=== PATIENT | female | born 1990 | race Caucasian/White ===

== ENCOUNTER 2016-12-18 20:58 | Emergency (ER) | payer OTHER ==
--- NOTE | 2016-12-18 23:05 | ED CLINICAL REPORT ---
Clinical Report - Physicians/Mid Levels [facility] [address] [place] [address] 12/18/2016 21:00 Patient: PIA CARTER Time Seen: 21:12. Arrived- By private vehicle. Historian- patient and family. HISTORY OF PRESENT ILLNESS Chief Complaint: INJURY TO RIGHT UPPER EXTREMITY (WRIST and HAND). The injury occurred 2 days ago and today. Occurred at work. ( Pia fell at work 2 days ago. 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 Today she was lifting a 24 can case of soda and felt a pop in her right wrist. Her wrist had continued to hurt after the first injury 2 days ago. 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 During that time she has developed pain in both wrists which she believes to be carpal tunnel syndrome.). Fell. The patient complains of moderate pain. No blow to the head, neck pain or loss of consciousness. Not dazed. REVIEW OF SYSTEMS No numbness, loss of vision, hearing loss, chest pain or difficulty breathing. No weakness, nausea, abdominal pain, laceration or vomiting. She has no pain on weight bearing. PAST HISTORY PCP: PROBLEMS: Carpal Tunnel Syndrome. Thyroid Disease. Dental Pain. Hypertension. Dental Caries. SOCIAL HISTORY Current every day smoker. ADDITIONAL NOTES The nursing notes have been reviewed. PHYSICAL EXAM Vital Signs: 12/18/2016 21:07 BP: 171/128. HR: 94. RR: 20. O2 saturation: 100%. Temp: 98.1 F. Pain level now: 04/17. Appearance: Alert. No acute distress. Head: Head non-tender. Neck: Painless ROM. Non-tender. Non-tender. Respiratory: Chest nontender. Abdomen: Soft and nontender. Back: No tenderness. ROM normal. Extremities: Right shoulder. (mild tenderness with complete normal range of motion). No limitation in ROM. Right wrist: mild tenderness located in the area of the anatomic snuffbox and dorsal aspect of the wrist. Neurovascular intact distally. No erythema or swelling. No joint effusion or limitation in ROM. Right hand: tenderness. (Tender over the mid fifth metacarpal). No swelling or deformity. (Otherwise normal to palpation). LABS, X-RAYS, AND EKG Rt Wrist X-ray: (Navicular and 5th metatarsal tender but x-ray neg. /RR). The X-rays were independently viewed by me. PROGRESS AND PROCEDURES Splint Application: Fiberglass thumb spica splint applied to right upper extremity. Splint applied by tech with direct supervision by me. Reassessed extremity following splint application. Neurovascular intact. Follow-up recommended within 8 days. Course of Care: 22:41 12/18/16. Meds, ICG L&I form completed. Splinting is somewhat complicated by the patient's wedding tomorrow. She is warned about navicular fracture and car groomer wrist disability. She is given a thumb spika which can be removed for the wedding ceremony. Disposition: Discharged. Condition: stable. CLINICAL IMPRESSION Possible navicular fracture of the right wrist. RIGHT WRIST PAIN HYPERTENSION GROUND LEVEL FALL. INSTRUCTIONS Return to work (Ms Lombardi may have a navicular bone fracture in her wrist. You may use your left arm and wrist normally and may lift up to 15 pounds with that. For up to the next 6 weeks he will need to severely limited any use with the right hand or wrist.). (You may have a navicular bone fracture in her wrist. You may use your left arm and wrist normally and may lift up to 15 pounds with that. For up to the next 6 weeks he will need to severely limited any use with the right hand or wrist. YOU ALSO NEED YOUR BLOOD PRESSURE CHECKED AND MANAGED.). Prescription Medications: Hydrocodone/APAP 5mg / 325mg: take 1-2 orally every 4 hours. Dispense twelve (12). No refill. HCTZ 25 mg: take 1 orally every 24 hours. Dispense thirty (30). No refills. Follow-up: Follow up with doctor in eight days. Understanding of the discharge instructions verbalized by patient. [facility] with: [facility], , [address] [place], [id number] Follow up. Reason for referral: YOU NEED A RE EVALUATION OF A POSSIBLE NAVICULAR FRACTUR AND POSSIBLE CARPAL TUNNEL. (Electronically signed by Daniele Hawkins MD 12/19/2016 21:45)
--- NOTE | 2016-12-18 23:05 | ED NURSING NOTES ---
Clinical Report - Nurses [facility] [place] [address] 12/18/2016 21:00 Patient: ANALIA CARTER TRIAGE Triage time 21:08 Dec 18 2016. Acuity: LEVEL 3. Chief Complaint: INJURY TO RIGHT WRIST. 21:12 12/18/16. SEPSIS SCREEN: Sepsis Screen: negative. Negative (no infection suspected/documented). PATY COMA SCORE: Paty Coma Scale: 15- eyes open spontaneously (4); best verbal response- oriented x 4 (5); best motor response- obeys commands (6). --21:12 Kelly Morales 21:07 12/18/16. BP: 171/128. HR: 94. RR: 20. O2 saturation: 100% on room air. Temp: 98.1 F (oral). Pain level now: 04/17. --21:12 Kelly Morales. Weight: 136 kg stated. Height/Length: 71 inches Per Patient. BMI: 41.8. --21:11 Kelly Morales. Medications None. --21:09 Kelly Morales. Medication/allergy information source: the patient. --21:12 Kelly Morales. Allergies No Known Drug Allergy. --21:09 Kelly Morales. History Arrived by private vehicle. Historian: patient. Unaccompanied. Primary physician (None). This occurred yesterday. Occurred at work. Mechanism of injury: fell while walking and landed on a hard surface; slipped. ( Patient reports she fell at work two days ago and landed on her right wrist. She states today she grabbed something and felt a pop and pain. She reports some swelling in the right wrist.). PAST MEDICAL HX: Tetanus status: up-to-date. Immunizations: up-to-date. Last normal menstrual period- 1 months ago. SOCIAL HX: Smoker- current status unknown (cigarette). History of drug use: marijuana. No alcohol use. No infectious disease exposure. ABUSE ASSESSMENT: No report of abuse. FALL RISK ASSESSMENT: Fall risk assessment completed. No fall risk identified. NUTRITIONAL RISK ASSESSMENT: The nutritional risk assessment revealed no deficiencies. FUNCTIONAL ASSESSMENT: Functional assessment: no impairments noted. LEARNING NEEDS ASSESSMENT: The learning needs assessment revealed no barriers. SKIN INTEGRITY ASSESSMENT: Skin integrity risk assessment completed. No skin integrity risk identified. --21:12 Kelly Morales. PROBLEMS: Carpal Tunnel Syndrome. Thyroid Disease. Dental Pain. Hypertension. Dental Caries. Immunizations. LNMP - Last Normal Menstrual Period. --21:09 Kelly Morales. ADDITIONAL SURGERIES: no known surgeries. Interventions ID band on patient. To treatment room. --21:12 Kelly Morales. PHYSICAL ASSESSMENT 21:12 12/18/16. Ambulatory to room. GENERAL / NEURO / PSYCH: Oriented X 4. Alert. Appears in no acute distress. EXTREMITIES: Capillary refill is less than 2 seconds in the extremities. Extremity pulses are within normal limits. Neuro-vascular status intact to the extremity. Right wrist: tenderness located in the radial aspect of the wrist. Limited ROM secondary to pain. SKIN: Skin is warm and dry. --21:12 Kelly Morales. NURSING PROGRESS NOTES Cold pack applied. Warming measures: blanket applied. Reassurance given to the patient. Two patient identifiers checked. Call light placed in reach. Side rails up x 1. Bed placed in lowest position. Brakes of bed on. Patient ready for evaluation- chart flagged. --21:13 Kelly Morales 21:32 12/18/2016 Ibuprofen PO Capsules 600 mg given. Allergies verified and confirmed 5 rights. --21:32 Kelly Morales 21:35 Portable X-ray in progress. --21:35 Lisa Grewal, ER Tech1 22:10. Thumb spica fiberglass upper extremity splint applied to right wrist by tech. --22:16 Lisa Grewal, ER Tech1. DISPOSITION / DISCHARGE 22:49 12/18/16. Condition at departure: stable. The goals identified in the patient's plan of care were met. ( Provider made aware of patient vitals, provider reassessed and added medications to patient discharge). No learning barriers present. Discharge instructions provided and reviewed with the patient. Reviewed warnings (Do not drive while on sedative medications). Reviewed medication(s) side effects, precautions, dosing and course information. Prescription(s) given to the patient. Reviewed splint care instructions. Patient verbalized understanding. Written instructions provided in Sami. ( Please see your PCP in three days to evaluate your blood pressure. Ice and elevate affected extremity. Limit use of the affected extremity. Referral given to Ortho. Patient expressed understanding of discharge instruction and had no questions at this time.). The patient was discharged by the physician. She was discharged home and accompanied by rod bending machine operator. She left the Emergency Department ambulatory and via private vehicle. Tongue Carrier driving. FALL RISK ASSESSMENT: Fall risk assessment completed. No fall risk identified. --00:50 Kelly Morales 22:46 12/18/16. BP: 189/125. HR: 102. RR: 20. O2 saturation: 98% on room air. Temp: deferred. Pain level now: 04/17. --00:50 Kelly Morales. Locked/Released at 12/19/2016 0:50 by Kelly Morales,
--- NOTE | 2016-12-18 23:05 | ED CLINICAL REPORT ---
Clinical Report - Physicians/Mid Levels [facility] [address] [place] [address] 12/18/2016 21:00 Patient: PIA CARTER Time Seen: 21:12. Arrived- By private vehicle. Historian- patient and family. HISTORY OF PRESENT ILLNESS Chief Complaint: INJURY TO RIGHT UPPER EXTREMITY (WRIST and HAND). The injury occurred 2 days ago and today. Occurred at work. ( Pia fell at work 2 days ago. 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 Today she was lifting a 24 can case of soda and felt a pop in her right wrist. Her wrist had continued to hurt after the first injury 2 days ago. 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 During that time she has developed pain in both wrists which she believes to be carpal tunnel syndrome.). Fell. The patient complains of moderate pain. No blow to the head, neck pain or loss of consciousness. Not dazed. REVIEW OF SYSTEMS No numbness, loss of vision, hearing loss, chest pain or difficulty breathing. No weakness, nausea, abdominal pain, laceration or vomiting. She has no pain on weight bearing. PAST HISTORY PCP: PROBLEMS: Carpal Tunnel Syndrome. Thyroid Disease. Dental Pain. Hypertension. Dental Caries. SOCIAL HISTORY Current every day smoker. ADDITIONAL NOTES The nursing notes have been reviewed. PHYSICAL EXAM Vital Signs: 12/18/2016 21:07 BP: 171/128. HR: 94. RR: 20. O2 saturation: 100%. Temp: 98.1 F. Pain level now: 04/17. Appearance: Alert. No acute distress. Head: Head non-tender. Neck: Painless ROM. Non-tender. Non-tender. Respiratory: Chest nontender. Abdomen: Soft and nontender. Back: No tenderness. ROM normal. Extremities: Right shoulder. (mild tenderness with complete normal range of motion). No limitation in ROM. Right wrist: mild tenderness located in the area of the anatomic snuffbox and dorsal aspect of the wrist. Neurovascular intact distally. No erythema or swelling. No joint effusion or limitation in ROM. Right hand: tenderness. (Tender over the mid fifth metacarpal). No swelling or deformity. (Otherwise normal to palpation). LABS, X-RAYS, AND EKG Rt Wrist X-ray: (Navicular and 5th metatarsal tender but x-ray neg. /RR). The X-rays were independently viewed by me. PROGRESS AND PROCEDURES Splint Application: Fiberglass thumb spica splint applied to right upper extremity. Splint applied by tech with direct supervision by me. Reassessed extremity following splint application. Neurovascular intact. Follow-up recommended within 8 days. Course of Care: 22:41 12/18/16. Meds, ICG L&I form completed. Splinting is somewhat complicated by the patient's wedding tomorrow. She is warned about navicular fracture and long term care phlebotomist wrist disability. She is given a thumb spika which can be removed for the wedding ceremony. Disposition: Discharged. Condition: stable. CLINICAL IMPRESSION Possible navicular fracture of the right wrist. RIGHT WRIST PAIN HYPERTENSION GROUND LEVEL FALL. INSTRUCTIONS Return to work (Ms Lombardi may have a navicular bone fracture in her wrist. You may use your left arm and wrist normally and may lift up to 15 pounds with that. For up to the next 6 weeks he will need to severely limited any use with the right hand or wrist.). (You may have a navicular bone fracture in her wrist. You may use your left arm and wrist normally and may lift up to 15 pounds with that. For up to the next 6 weeks he will need to severely limited any use with the right hand or wrist. YOU ALSO NEED YOUR BLOOD PRESSURE CHECKED AND MANAGED.). Prescription Medications: Hydrocodone/APAP 5mg / 325mg: take 1-2 orally every 4 hours. Dispense twelve (12). No refill. HCTZ 25 mg: take 1 orally every 24 hours. Dispense thirty (30). No refills. Follow-up: Follow up with doctor in eight days. Understanding of the discharge instructions verbalized by patient. [facility] with: [facility], , [address] [place], [id number] Follow up. Reason for referral: YOU NEED A RE EVALUATION OF A POSSIBLE NAVICULAR FRACTUR AND POSSIBLE CARPAL TUNNEL. (Electronically signed by Daniele Hawkins MD 12/19/2016 21:45)
--- NOTE | 2016-12-18 23:05 | ED ORDER SUMMARY ---
..... Patient: ANALIA CARTER OrderSheet [facility] VisitID: [id number] [place] [address] 25y, F Registration Date/Time: 12/18/2016 ORDER SHEET Weight: 136.0 kg (stated) Allergies: No Known Drug Allergy GENERAL ORDERS: Wrist 2V Right Urgent (21:24 12/18/2016 Rubén UREÑA) (Cancelled: Other21:28 Rubén UREÑA) Wrist 3 or 4V Right Urgent (21:28 12/18/2016 Rubén UREÑA) (Ack 21:38 SRedmond) (Cancelled: Other22:00 HSoule) Hand 3 or 4V Right (R 5th MC tender) Urgent (21:29 12/18/2016 Rubén UREÑA) (Ack 21:38 SRedmond) (21:42 RFay) Splint (UE) (Right) (Thumb Spica) (21:55 12/18/2016 Rubén UREÑA) (Ack 22:00 HSoule) (22:16 AMcQuoid ER Tech1) MEDICATION ORDERS: Ibuprofen PO 600 mg (NOW) (21:26 12/18/2016 Rubén UREÑA) (Ack 21:28 HSoule) (21:32 HSoule) IV FLUIDS: ORDER SHEET NOTES: [Electronically signed by Kelly Morales (00:50 12/19/2016)] [Electronically signed by Daniele Hawkins MD (21:45 12/19/2016)] [Electronically locked/signed by Kelly Morales (00:50 12/19/2016)]
--- NOTE | 2016-12-18 23:05 | ED NURSING NOTES ---
Clinical Report - Nurses [facility] [place] [address] 12/18/2016 21:00 Patient: ANALIA CARTER TRIAGE Triage time 21:08 Dec 18 2016. Acuity: LEVEL 3. Chief Complaint: INJURY TO RIGHT WRIST. 21:12 12/18/16. SEPSIS SCREEN: Sepsis Screen: negative. Negative (no infection suspected/documented). PATY COMA SCORE: Paty Coma Scale: 15- eyes open spontaneously (4); best verbal response- oriented x 4 (5); best motor response- obeys commands (6). --21:12 Kelly Morales 21:07 12/18/16. BP: 171/128. HR: 94. RR: 20. O2 saturation: 100% on room air. Temp: 98.1 F (oral). Pain level now: 04/17. --21:12 Kelly Morales. Weight: 136 kg stated. Height/Length: 71 inches Per Patient. BMI: 41.8. --21:11 Kelly Morales. Medications None. --21:09 Kelly Morales. Medication/allergy information source: the patient. --21:12 Kelly Morales. Allergies No Known Drug Allergy. --21:09 Kelly Morales. History Arrived by private vehicle. Historian: patient. Unaccompanied. Primary physician (None). This occurred yesterday. Occurred at work. Mechanism of injury: fell while walking and landed on a hard surface; slipped. ( Patient reports she fell at work two days ago and landed on her right wrist. She states today she grabbed something and felt a pop and pain. She reports some swelling in the right wrist.). PAST MEDICAL HX: Tetanus status: up-to-date. Immunizations: up-to-date. Last normal menstrual period- 1 months ago. SOCIAL HX: Smoker- current status unknown (cigarette). History of drug use: marijuana. No alcohol use. No infectious disease exposure. ABUSE ASSESSMENT: No report of abuse. FALL RISK ASSESSMENT: Fall risk assessment completed. No fall risk identified. NUTRITIONAL RISK ASSESSMENT: The nutritional risk assessment revealed no deficiencies. FUNCTIONAL ASSESSMENT: Functional assessment: no impairments noted. LEARNING NEEDS ASSESSMENT: The learning needs assessment revealed no barriers. SKIN INTEGRITY ASSESSMENT: Skin integrity risk assessment completed. No skin integrity risk identified. --21:12 Kelly Morales. PROBLEMS: Carpal Tunnel Syndrome. Thyroid Disease. Dental Pain. Hypertension. Dental Caries. Immunizations. LNMP - Last Normal Menstrual Period. --21:09 Kelly Morales. ADDITIONAL SURGERIES: no known surgeries. Interventions ID band on patient. To treatment room. --21:12 eKlly Morales. PHYSICAL ASSESSMENT 21:12 12/18/16. Ambulatory to room. GENERAL / NEURO / PSYCH: Oriented X 4. Alert. Appears in no acute distress. EXTREMITIES: Capillary refill is less than 2 seconds in the extremities. Extremity pulses are within normal limits. Neuro-vascular status intact to the extremity. Right wrist: tenderness located in the radial aspect of the wrist. Limited ROM secondary to pain. SKIN: Skin is warm and dry. --21:12 Kelly Morales. NURSING PROGRESS NOTES Cold pack applied. Warming measures: blanket applied. Reassurance given to the patient. Two patient identifiers checked. Call light placed in reach. Side rails up x 1. Bed placed in lowest position. Brakes of bed on. Patient ready for evaluation- chart flagged. --21:13 Kelly Morales 21:32 12/18/2016 Ibuprofen PO Capsules 600 mg given. Allergies verified and confirmed 5 rights. --21:32 Kelly Morales 21:35 Portable X-ray in progress. --21:35 Lisa Grewal, ER Tech1 22:10. Thumb spica fiberglass upper extremity splint applied to right wrist by tech. --22:16 Lisa Grewal, ER Tech1. DISPOSITION / DISCHARGE 22:49 12/18/16. Condition at departure: stable. The goals identified in the patient's plan of care were met. ( Provider made aware of patient vitals, provider reassessed and added medications to patient discharge). No learning barriers present. Discharge instructions provided and reviewed with the patient. Reviewed warnings (Do not drive while on sedative medications). Reviewed medication(s) side effects, precautions, dosing and course information. Prescription(s) given to the patient. Reviewed splint care instructions. Patient verbalized understanding. Written instructions provided in Turkish. ( Please see your PCP in three days to evaluate your blood pressure. Ice and elevate affected extremity. Limit use of the affected extremity. Referral given to Ortho. Patient expressed understanding of discharge instruction and had no questions at this time.). The patient was discharged by the physician. She was discharged home and accompanied by general ledger accountant. She left the Emergency Department ambulatory and via private vehicle. Accountant Systems driving. FALL RISK ASSESSMENT: Fall risk assessment completed. No fall risk identified. --00:50 Kelly Morales 22:46 12/18/16. BP: 189/125. HR: 102. RR: 20. O2 saturation: 98% on room air. Temp: deferred. Pain level now: 04/17. --00:50 Kelly Morales. Locked/Released at 12/19/2016 0:50 by Kelly Morales,
--- NOTE | 2016-12-18 23:05 | ED ORDER SUMMARY ---
..... Patient: ANALIA CARTER OrderSheet [facility] VisitID: [id number] [place] [address] 25y, F Registration Date/Time: 12/18/2016 ORDER SHEET Weight: 136.0 kg (stated) Allergies: No Known Drug Allergy GENERAL ORDERS: Wrist 2V Right Urgent (21:24 12/18/2016 Rubén UREÑA) (Cancelled: Other21:28 Rubén UREÑA) Wrist 3 or 4V Right Urgent (21:28 12/18/2016 Rubén UREÑA) (Ack 21:38 SRedmond) (Cancelled: Other22:00 HSoule) Hand 3 or 4V Right (R 5th MC tender) Urgent (21:29 12/18/2016 Rubén UREÑA) (Ack 21:38 SRedmond) (21:42 RFay) Splint (UE) (Right) (Thumb Spica) (21:55 12/18/2016 Rubén UREÑA) (Ack 22:00 HSoule) (22:16 AMcQuoid ER Tech1) MEDICATION ORDERS: Ibuprofen PO 600 mg (NOW) (21:26 12/18/2016 Rubén UREÑA) (Ack 21:28 HSoule) (21:32 HSoule) IV FLUIDS: ORDER SHEET NOTES: [Electronically signed by Kelly Morales (00:50 12/19/2016)] [Electronically signed by Daniele Hawkins MD (21:45 12/19/2016)] [Electronically locked/signed by Kelly Morales (00:50 12/19/2016)]
--- NOTE | 2016-12-18 23:18 | DIAGNOSTIC IMAGING REPORT ---
PROCEDURE: XR HAND 3 OR 4 VIEWS - RIGHT INDICATION: TRAUMA/INJURY TECHNIQUE: Five views of the right hand. COMPARISON: None. FINDINGS: Normal mineralization. No fractures. Normal osseous alignment. No suspicious soft-tissue calcification or radiodense foreign bodies. IMPRESSION: 1. Intact right hand.
--- NOTE | 2016-12-19 21:45 | ED MAR SUMMARY ---
..... Medication Administration Record [facility] [address] [place] [address] Patient: ANALIA CARTER Visit ID: [id number] 25y, F Weight: 136.0 kg Height/Length: 71 in BMI: 41.8 ALLERGIES: No Known Drug Allergy Given 21:32 12/18/2016 Kelly Morales, Medication Administered: IBUPROFEN [PO], Dose: 600 mg Capsules PO. Medication Ordered: Ibuprofen PO 600 mg (NOW).
--- NOTE | 2016-12-19 21:45 | ED MED RECONCILIATION SUMMARY ---
Patient: ANALIA CARTER Medication Reconciliation Report [facility] VisitID: [id number] [place] [address] 25y, F Registration Date/Time: 12/18/2016 Weight: 136.0 kg Height/Length: 71 in. BMI: 41.8 ALLERGIES: No Known Drug Allergy The patient's Home Medications are listed below: NONE. The source(s) of the original Home Medication information: patient The following Medications were given to the patient in the Emergency Department: Ibuprofen [PO] PO 600 mg, administered: 12/18/2016 9:32:00 PM The following Medications were prescribed to the patient: Hydrocodone/APAP 5mg / 325mg: take 1-2 orally every 4 hours. Dispense twelve (12). No refill. -- Daniele Hawkins MD HCTZ 25 mg: take 1 orally every 24 hours. Dispense thirty (30). No refills. -- Daniele Hawkins MD
--- NOTE | 2016-12-19 21:45 | ED MAR SUMMARY ---
..... Medication Administration Record [address] [place] [address] Patient: ANALIA CARTER Visit ID: [id number] 25y, F Weight: 136.0 kg Height/Length: 71 in BMI: 41.8 ALLERGIES: No Known Drug Allergy Given 21:32 12/18/2016 Klely Morales, Medication Administered: IBUPROFEN [PO], Dose: 600 mg Capsules PO. Medication Ordered: Ibuprofen PO 600 mg (NOW).
--- NOTE | 2016-12-19 21:45 | ED DISCHARGE INSTRUCTIONS ---
Patient: ANALIA CARTER General Instructions [facility] VisitID: [id number] [address] [place] [place] [address] 25y, F Registration Date/Time: 12/18/2016 RIGHT WRIST PAIN HYPERTENSION GROUND LEVEL FALL. INSTRUCTIONS Return to work (Ms Lombardi may have a navicular bone fracture in her wrist. You may use your left arm and wrist normally and may lift up to 15 pounds with that. For up to the next 6 weeks he will need to severely limited any use with the right hand or wrist.). (You may have a navicular bone fracture in her wrist. You may use your left arm and wrist normally and may lift up to 15 pounds with that. For up to the next 6 weeks he will need to severely limited any use with the right hand or wrist. YOU ALSO NEED YOUR BLOOD PRESSURE CHECKED AND MANAGED.). Prescription Medications: Hydrocodone/APAP 5mg / 325mg: take 1-2 orally every 4 hours. Dispense twelve (12). No refill. HCTZ 25 mg: take 1 orally every 24 hours. Dispense thirty (30). No refills. Follow-up: Follow up with doctor in eight days. Understanding of the discharge instructions verbalized by patient. Follow-up with: [facility], , [address], [place], [id number] Follow up. Reason for referral: YOU NEED A RE EVALUATION OF A POSSIBLE NAVICULAR FRACTUR AND POSSIBLE CARPAL TUNNEL. ADDITIONAL INFORMATION Navicular Fracture (Wrist), Suspected You are very tender over the navicular bone of the wrist (also called the "scaphoid bone"). This could be a sign of a hairline fracture (break) even though no fracture was seen on the X-ray. Therefore, a splint or cast will be applied until repeat X-rays are taken in about 1-2 weeks. If a hairline fracture is present, it will be visible on the second X-ray and you will have to continue wearing a cast for about 12 weeks. If no fracture is seen on the second X-ray, this means you only have a wrist sprain and the splint/cast can be removed. Home Care: 1) Keep your arm elevated to reduce pain and swelling. When sitting or lying down elevate your arm above the level of your heart. You can do this by placing your arm on a pillow that rests on your chest or on a pillow at your side. This is most important during the first 48 hours after injury. 2) Apply an ice pack (ice cubes in a plastic bag, wrapped in a towel) over the injured area for 20 minutes every 1-2 hours the first day. You can place the ice pack inside the sling and directly over the splint/cast. Continue with ice packs 3-4 times a day for the next two days, then as needed for the relief of pain and swelling. 3) Keep the cast/splint completely dry at all times. Bathe with your cast/splint out of the water, protected with a large plastic bag, rubber-banded at the top end. If a fiberglass cast/splint gets wet, you can dry it with a hair-dryer. 4) You may use acetaminophen (Tylenol) or ibuprofen (Motrin, Advil) to control pain, unless another pain medicine was prescribed. [ NOTE : If you have chronic liver or kidney disease or ever had a stomach ulcer or GI bleeding, talk with your doctor before using these medicines.] 5) If you smoke, try to quit. Tobacco use can interfere with the healing of this fracture and increase risk of a complication needing surgery. Follow Up with your doctor in one week, or as advised by our staff, to be sure the bone is healing properly. [NOTE: Any X-rays taken will be reviewed by a radiologist. You will be notified of any new findings that may affect your care.] Get Prompt Medical Attention if any of the following occur: -- The plaster cast or splint becomes wet or soft -- The fiberglass cast or splint remains wet for more than 24 hours -- Increased tightness or pain under the cast or splint -- Fingers become swollen, cold, blue, numb or tingly Hydrocodone Bitartrate, Acetaminophen Oral tablet What is this medicine? ACETAMINOPHEN; HYDROCODONE (a set a DAMIÁN qing fen; alyson droe KOE done) is a pain reliever. It is used to treat mild to moderate pain. How should I use this medicine? Take this medicine by mouth. Swallow it with a full glass of water. Follow the directions on the prescription label. If the medicine upsets your stomach, take the medicine with food or milk. Do not take more than you are told to take. Talk to your dance coach regarding the use of this medicine in children. This medicine is not approved for use in children. What side effects may I notice from receiving this medicine? Side effects that you should report to your doctor or health urgent care as soon as possible: allergic reactions like skin rash, itching or hives, swelling of the face, lips, or tongue breathing problems confusion feeling faint or lightheaded, falls stomach pain yellowing of the eyes or skin Side effects that usually do not require medical attention (report to your doctor or health urgent care if they continue or are bothersome): nausea, vomiting stomach upset What may interact with this medicine? alcohol antihistamines isoniazid medicines for depression, anxiety, or psychotic disturbances medicines for sleep muscle relaxants naltrexone narcotic medicines (opiates) for pain phenobarbital ritonavir tramadol What if I miss a dose? If you miss a dose, take it as soon as you can. If it is almost time for your next dose, take only that dose. Do not take double or extra doses. Where should I keep my medicine? Keep out of the reach of children. This medicine can be abused. Keep your medicine in a safe place to protect it from theft. Do not share this medicine with anyone. Selling or giving away this medicine is dangerous and against the law. Store at room temperature between 15 and 30 degrees C (59 and 86 degrees F). Protect from light. Keep container tightly closed. Throw away any unused medicine after the expiration date. Discard unused medicine and used packaging carefully. Pets and children can be harmed if they find used or lost packages. What should I tell my health care provider before I take this medicine? They need to know if you have any of these conditions: brain tumor Crohn's disease, inflammatory bowel disease, or ulcerative colitis drink more than 3 alcohol-containing drinks per day drug abuse or addiction head injury heart or circulation problems kidney disease or problems going to the bathroom liver disease lung disease, asthma, or breathing problems an unusual or allergic reaction to acetaminophen, hydrocodone, other opioid analgesics, other medicines, foods, dyes, or preservatives or trying to get breast-feeding What should I watch for while using this medicine? Tell your doctor or health urgent care if your pain does not go away, if it gets worse, or if you have new or a different type of pain. You may develop tolerance to the medicine. Tolerance means that you will need a higher dose of the medicine for pain relief. Tolerance is normal and is expected if you take the medicine for a long time. Do not suddenly stop taking your medicine because you may develop a severe reaction. Your body becomes used to the medicine. This does NOT mean you are addicted. Addiction is a behavior related to getting and using a drug for a non-medical reason. If you have pain, you have a medical reason to take pain medicine. Your doctor will tell you how much medicine to take. If your doctor wants you to stop the medicine, the dose will be slowly lowered over time to avoid any side effects. You may get drowsy or dizzy when you first start taking the medicine or change doses. Do not drive, use machinery, or do anything that may be dangerous until you know how the medicine affects you. Stand or sit up slowly. There are different types of narcotic medicines (opiates) for pain. If you take more than one type at the same time, you may have more side effects. Give your health care provider a list of all medicines you use. Your doctor will tell you how much medicine to take. Do not take more medicine than directed. Call emergency for help if you have problems breathing. The medicine will cause constipation. Try to have a bowel movement at least every 2 to 3 days. If you do not have a bowel movement for 3 days, call your doctor or health urgent care. Too much acetaminophen can be very dangerous. Do not take Tylenol (acetaminophen) or medicines that contain acetaminophen with this medicine. Many non-prescription medicines contain acetaminophen. Always read the labels carefully. Hydrochlorothiazide Oral tablet What is this medicine? HYDROCHLOROTHIAZIDE (alyson droe klor oh THYE a zide) is a diuretic. It increases the amount of urine passed, which causes the body to lose salt and water. This medicine is used to treat high blood pressure. It is also reduces the swelling and water retention caused by various medical conditions, such as heart, liver, or kidney disease. How should I use this medicine? Take this medicine by mouth with a glass of water. Follow the directions on the prescription label. Take your medicine at regular intervals. Remember that you will need to pass urine frequently after taking this medicine. Do not take your doses at a time of day that will cause you problems. Do not stop taking your medicine unless your doctor tells you to. Talk to your dance coach regarding the use of this medicine in children. Special care may be needed. What side effects may I notice from receiving this medicine? Side effects that you should report to your doctor or health urgent care as soon as possible: allergic reactions such as skin rash or itching, hives, swelling of the lips, mouth, tongue, or throat changes in vision chest pain eye pain fast or irregular heartbeat feeling faint or lightheaded, falls gout attack muscle pain or cramps pain or difficulty when passing urine pain, tingling, numbness in the hands or feet redness, blistering, peeling or loosening of the skin, including inside the mouth unusually weak or tired Side effects that usually do not require medical attention (report to your doctor or health urgent care if they continue or are bothersome): change in sex drive or performance dry mouth headache stomach upset What may interact with this medicine? cholestyramine colestipol digoxin dofetilide lithium medicines for blood pressure medicines for diabetes medicines that relax muscles for surgery other diuretics steroid medicines like prednisone or cortisone What if I miss a dose? If you miss a dose, take it as soon as you can. If it is almost time for your next dose, take only that dose. Do not take double or extra doses. Where should I keep my medicine? Keep out of the reach of children. Store at room temperature between 15 and 30 degrees C (59 and 86 degrees F). Do not freeze. Protect from light and moisture. Keep container closed tightly. Throw away any unused medicine after the expiration date. What should I tell my health care provider before I take this medicine? They need to know if you have any of these conditions: diabetes gout immune system problems, like lupus kidney disease or kidney stones liver disease pancreatitis small amount of urine or difficulty passing urine an unusual or allergic reaction to hydrochlorothiazide, sulfa drugs, other medicines, foods, dyes, or preservatives or trying to get breast-feeding What should I watch for while using this medicine? Visit your doctor or health urgent care for regular checks on your progress. Check your blood pressure as directed. Ask your doctor or health urgent care what your blood pressure should be and when you should contact him or her. You may need to be on a special diet while taking this medicine. Ask your doctor. Check with your doctor or health urgent care if you get an attack of severe diarrhea, nausea and vomiting, or if you sweat a lot. The loss of too much body fluid can make it dangerous for you to take this medicine. You may get drowsy or dizzy. Do not drive, use machinery, or do anything that needs mental alertness until you know how this medicine affects you. Do not stand or sit up quickly, especially if you are an older patient. This reduces the risk of dizzy or fainting spells. Alcohol may interfere with the effect of this medicine. Avoid alcoholic drinks. This medicine may affect your blood sugar level. If you have diabetes, check with your doctor or health urgent care before changing the dose of your diabetic medicine. This medicine can make you more sensitive to the sun. Keep out of the sun. If you cannot avoid being in the sun, wear protective clothing and use sunscreen. Do not use sun lamps or tanning beds/booths. You have been given the following additional information: Fracture, Navicular (Wrist), Suspected Hydrocodone Bitartrate, Acetaminophen Oral tablet Hydrochlorothiazide Oral tablet Return to work (Ms Lombardi may have a navicular bone fracture in her wrist. You may use your left arm and wrist normally and may lift up to 15 pounds with that. For up to the next 6 weeks he will need to severely limited any use with the right hand or wrist.). (Electronically signed by Daniele Hawkins MD 12/19/2016 21:45)
--- NOTE | 2016-12-19 21:45 | ED MED RECONCILIATION SUMMARY ---
Patient: ANALIA CARTER Medication Reconciliation Report [facility] VisitID: [id number] [place] [address] 25y, F Registration Date/Time: 12/18/2016 Weight: 136.0 kg Height/Length: 71 in. BMI: 41.8 ALLERGIES: No Known Drug Allergy The patient's Home Medications are listed below: NONE. The source(s) of the original Home Medication information: patient The following Medications were given to the patient in the Emergency Department: Ibuprofen [PO] PO 600 mg, administered: 12/18/2016 9:32:00 PM The following Medications were prescribed to the patient: Hydrocodone/APAP 5mg / 325mg: take 1-2 orally every 4 hours. Dispense twelve (12). No refill. -- Daniele Hawkins MD HCTZ 25 mg: take 1 orally every 24 hours. Dispense thirty (30). No refills. -- Daniele Hawkins MD
--- NOTE | 2016-12-19 21:45 | ED DISCHARGE INSTRUCTIONS ---
Patient: ANALIA CARTER General Instructions [facility] VisitID: [id number] [address] [place] [address] 25y, F Registration Date/Time: 12/18/2016 RIGHT WRIST PAIN HYPERTENSION GROUND LEVEL FALL. INSTRUCTIONS Return to work (Ms Lombardi may have a navicular bone fracture in her wrist. You may use your left arm and wrist normally and may lift up to 15 pounds with that. For up to the next 6 weeks he will need to severely limited any use with the right hand or wrist.). (You may have a navicular bone fracture in her wrist. You may use your left arm and wrist normally and may lift up to 15 pounds with that. For up to the next 6 weeks he will need to severely limited any use with the right hand or wrist. YOU ALSO NEED YOUR BLOOD PRESSURE CHECKED AND MANAGED.). Prescription Medications: Hydrocodone/APAP 5mg / 325mg: take 1-2 orally every 4 hours. Dispense twelve (12). No refill. HCTZ 25 mg: take 1 orally every 24 hours. Dispense thirty (30). No refills. Follow-up: Follow up with doctor in eight days. Understanding of the discharge instructions verbalized by patient. Follow[facility]up with: [facility], , [address], [place], [id number] Follow up. Reason for referral: YOU NEED A RE EVALUATION OF A POSSIBLE NAVICULAR FRACTUR AND POSSIBLE CARPAL TUNNEL. ADDITIONAL INFORMATION Navicular Fracture (Wrist), Suspected You are very tender over the navicular bone of the wrist (also called the "scaphoid bone"). This could be a sign of a hairline fracture (break) even though no fracture was seen on the X-ray. Therefore, a splint or cast will be applied until repeat X-rays are taken in about 1-2 weeks. If a hairline fracture is present, it will be visible on the second X-ray and you will have to continue wearing a cast for about 12 weeks. If no fracture is seen on the second X-ray, this means you only have a wrist sprain and the splint/cast can be removed. Home Care: 1) Keep your arm elevated to reduce pain and swelling. When sitting or lying down elevate your arm above the level of your heart. You can do this by placing your arm on a pillow that rests on your chest or on a pillow at your side. This is most important during the first 48 hours after injury. 2) Apply an ice pack (ice cubes in a plastic bag, wrapped in a towel) over the injured area for 20 minutes every 1-2 hours the first day. You can place the ice pack inside the sling and directly over the splint/cast. Continue with ice packs 3-4 times a day for the next two days, then as needed for the relief of pain and swelling. 3) Keep the cast/splint completely dry at all times. Bathe with your cast/splint out of the water, protected with a large plastic bag, rubber-banded at the top end. If a fiberglass cast/splint gets wet, you can dry it with a hair-dryer. 4) You may use acetaminophen (Tylenol) or ibuprofen (Motrin, Advil) to control pain, unless another pain medicine was prescribed. [ NOTE : If you have chronic liver or kidney disease or ever had a stomach ulcer or GI bleeding, talk with your doctor before using these medicines.] 5) If you smoke, try to quit. Tobacco use can interfere with the healing of this fracture and increase risk of a complication needing surgery. Follow Up with your doctor in one week, or as advised by our staff, to be sure the bone is healing properly. [NOTE: Any X-rays taken will be reviewed by a radiologist. You will be notified of any new findings that may affect your care.] Get Prompt Medical Attention if any of the following occur: -- The plaster cast or splint becomes wet or soft -- The fiberglass cast or splint remains wet for more than 24 hours -- Increased tightness or pain under the cast or splint -- Fingers become swollen, cold, blue, numb or tingly Hydrocodone Bitartrate, Acetaminophen Oral tablet What is this medicine? ACETAMINOPHEN; HYDROCODONE (a set a DAMIÁN qing fen; alyson droe KOE done) is a pain reliever. It is used to treat mild to moderate pain. How should I use this medicine? Take this medicine by mouth. Swallow it with a full glass of water. Follow the directions on the prescription label. If the medicine upsets your stomach, take the medicine with food or milk. Do not take more than you are told to take. Talk to your enrollment nurse regarding the use of this medicine in children. This medicine is not approved for use in children. What side effects may I notice from receiving this medicine? Side effects that you should report to your doctor or health post anesthesia care unit nurse as soon as possible: allergic reactions like skin rash, itching or hives, swelling of the face, lips, or tongue breathing problems confusion feeling faint or lightheaded, falls stomach pain yellowing of the eyes or skin Side effects that usually do not require medical attention (report to your doctor or health post anesthesia care unit nurse if they continue or are bothersome): nausea, vomiting stomach upset What may interact with this medicine? alcohol antihistamines isoniazid medicines for depression, anxiety, or psychotic disturbances medicines for sleep muscle relaxants naltrexone narcotic medicines (opiates) for pain phenobarbital ritonavir tramadol What if I miss a dose? If you miss a dose, take it as soon as you can. If it is almost time for your next dose, take only that dose. Do not take double or extra doses. Where should I keep my medicine? Keep out of the reach of children. This medicine can be abused. Keep your medicine in a safe place to protect it from theft. Do not share this medicine with anyone. Selling or giving away this medicine is dangerous and against the law. Store at room temperature between 15 and 30 degrees C (59 and 86 degrees F). Protect from light. Keep container tightly closed. Throw away any unused medicine after the expiration date. Discard unused medicine and used packaging carefully. Pets and children can be harmed if they find used or lost packages. What should I tell my health care provider before I take this medicine? They need to know if you have any of these conditions: brain tumor Crohn's disease, inflammatory bowel disease, or ulcerative colitis drink more than 3 alcohol-containing drinks per day drug abuse or addiction head injury heart or circulation problems kidney disease or problems going to the bathroom liver disease lung disease, asthma, or breathing problems an unusual or allergic reaction to acetaminophen, hydrocodone, other opioid analgesics, other medicines, foods, dyes, or preservatives or trying to get breast-feeding What should I watch for while using this medicine? Tell your doctor or health post anesthesia care unit nurse if your pain does not go away, if it gets worse, or if you have new or a different type of pain. You may develop tolerance to the medicine. Tolerance means that you will need a higher dose of the medicine for pain relief. Tolerance is normal and is expected if you take the medicine for a long time. Do not suddenly stop taking your medicine because you may develop a severe reaction. Your body becomes used to the medicine. This does NOT mean you are addicted. Addiction is a behavior related to getting and using a drug for a non-medical reason. If you have pain, you have a medical reason to take pain medicine. Your doctor will tell you how much medicine to take. If your doctor wants you to stop the medicine, the dose will be slowly lowered over time to avoid any side effects. You may get drowsy or dizzy when you first start taking the medicine or change doses. Do not drive, use machinery, or do anything that may be dangerous until you know how the medicine affects you. Stand or sit up slowly. There are different types of narcotic medicines (opiates) for pain. If you take more than one type at the same time, you may have more side effects. Give your health care provider a list of all medicines you use. Your doctor will tell you how much medicine to take. Do not take more medicine than directed. Call emergency for help if you have problems breathing. The medicine will cause constipation. Try to have a bowel movement at least every 2 to 3 days. If you do not have a bowel movement for 3 days, call your doctor or health post anesthesia care unit nurse. Too much acetaminophen can be very dangerous. Do not take Tylenol (acetaminophen) or medicines that contain acetaminophen with this medicine. Many non-prescription medicines contain acetaminophen. Always read the labels carefully. Hydrochlorothiazide Oral tablet What is this medicine? HYDROCHLOROTHIAZIDE (alyson droe klor oh THYE a zide) is a diuretic. It increases the amount of urine passed, which causes the body to lose salt and water. This medicine is used to treat high blood pressure. It is also reduces the swelling and water retention caused by various medical conditions, such as heart, liver, or kidney disease. How should I use this medicine? Take this medicine by mouth with a glass of water. Follow the directions on the prescription label. Take your medicine at regular intervals. Remember that you will need to pass urine frequently after taking this medicine. Do not take your doses at a time of day that will cause you problems. Do not stop taking your medicine unless your doctor tells you to. Talk to your enrollment nurse regarding the use of this medicine in children. Special care may be needed. What side effects may I notice from receiving this medicine? Side effects that you should report to your doctor or health post anesthesia care unit nurse as soon as possible: allergic reactions such as skin rash or itching, hives, swelling of the lips, mouth, tongue, or throat changes in vision chest pain eye pain fast or irregular heartbeat feeling faint or lightheaded, falls gout attack muscle pain or cramps pain or difficulty when passing urine pain, tingling, numbness in the hands or feet redness, blistering, peeling or loosening of the skin, including inside the mouth unusually weak or tired Side effects that usually do not require medical attention (report to your doctor or health post anesthesia care unit nurse if they continue or are bothersome): change in sex drive or performance dry mouth headache stomach upset What may interact with this medicine? cholestyramine colestipol digoxin dofetilide lithium medicines for blood pressure medicines for diabetes medicines that relax muscles for surgery other diuretics steroid medicines like prednisone or cortisone What if I miss a dose? If you miss a dose, take it as soon as you can. If it is almost time for your next dose, take only that dose. Do not take double or extra doses. Where should I keep my medicine? Keep out of the reach of children. Store at room temperature between 15 and 30 degrees C (59 and 86 degrees F). Do not freeze. Protect from light and moisture. Keep container closed tightly. Throw away any unused medicine after the expiration date. What should I tell my health care provider before I take this medicine? They need to know if you have any of these conditions: diabetes gout immune system problems, like lupus kidney disease or kidney stones liver disease pancreatitis small amount of urine or difficulty passing urine an unusual or allergic reaction to hydrochlorothiazide, sulfa drugs, other medicines, foods, dyes, or preservatives or trying to get breast-feeding What should I watch for while using this medicine? Visit your doctor or health post anesthesia care unit nurse for regular checks on your progress. Check your blood pressure as directed. Ask your doctor or health post anesthesia care unit nurse what your blood pressure should be and when you should contact him or her. You may need to be on a special diet while taking this medicine. Ask your doctor. Check with your doctor or health post anesthesia care unit nurse if you get an attack of severe diarrhea, nausea and vomiting, or if you sweat a lot. The loss of too much body fluid can make it dangerous for you to take this medicine. You may get drowsy or dizzy. Do not drive, use machinery, or do anything that needs mental alertness until you know how this medicine affects you. Do not stand or sit up quickly, especially if you are an older patient. This reduces the risk of dizzy or fainting spells. Alcohol may interfere with the effect of this medicine. Avoid alcoholic drinks. This medicine may affect your blood sugar level. If you have diabetes, check with your doctor or health post anesthesia care unit nurse before changing the dose of your diabetic medicine. This medicine can make you more sensitive to the sun. Keep out of the sun. If you cannot avoid being in the sun, wear protective clothing and use sunscreen. Do not use sun lamps or tanning beds/booths. You have been given the following additional information: Fracture, Navicular (Wrist), Suspected Hydrocodone Bitartrate, Acetaminophen Oral tablet Hydrochlorothiazide Oral tablet Return to work (Ms Lombardi may have a navicular bone fracture in her wrist. You may use your left arm and wrist normally and may lift up to 15 pounds with that. For up to the next 6 weeks he will need to severely limited any use with the right hand or wrist.). (Electronically signed by Daniele Hawkins MD 12/19/2016 21:45)
== END 2016-12-18 22:50 | disposition home or self-care (01) ==
LOC: ED SRH 20:58
DX: M25.531 Pain in right wrist (principal); W01.0XXA Fall on same level from slipping, tripping and stumbling without subsequent striking against object, initial encounter; Y93.9 Activity, unspecified; Y99.0 Civilian activity done for income or pay; Y92.512 Supermarket, store or market as the place of occurrence of the external cause; I10 Essential (primary) hypertension; E07.9 Disorder of thyroid, unspecified